=== PATIENT | male | born 1955 | race Caucasian/White ===

== ENCOUNTER 2021-08-07 10:14 | Observation (INO) | payer MEDICARE, MEDICAID ==
[2021-08-07] MEDS ORDERED: Sodium Chloride 0.9% 10 ML Syringe FLUSH PRN (10:24)
--- NOTE | 2021-08-07 10:30 | EDM.PDOC ---
ED HPI GENERAL MEDICAL PROBLEM - General Chief Complaint: General Stated Complaint: trauma Time Seen by Provider: 08/07/21 10:14 Source of Information: Reports: Patient, EMS History Limitations: Reports: No Limitations, Other (Previous head trauma and noted intellectual delay) - History of Present Illness INITIAL COMMENTS - FREE TEXT/NARRATIVE: [employer] department as a trauma code after falling down approximately 20 tiled steps. Patient is a member of the [employer] and was vacuuming at the top of the stairs. It is suspected that he stepped back not knowing his surro undings and ended up falling backwards down the stairs. Staff members were onsite and started hearing him fall and by the time they saw him he was almost at the bottom of the stairs. They noted that he did have a brief loss of consciousness less than 1 minute. He was able to answer most questions appropriately. He was noted to have bleeding from the mouth and head. Patient does have traumatic brain injury prior to today's event as well his cognition is slow according to staff. Patient currently was denying any pain or discomfort other than the left side of his neck and his head. Patient was C-spine protected prior to arrival to the emergency department. Patient currently has no concerns or complaints other than the above-stated. 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 - Related Data Allergies Allergy/AdvReac Type Severity Reaction Status Date / Time Penicillins Allergy Shortness Verified 08/07/21 11:51 of Breath shrimp flavor Allergy Shortness Uncoded 08/07/21 11:51 of Breath Home Meds: Home Meds Aspirin [Ecotrin] 81 mg PO DAILY 08/04/17 [History] Donepezil HCl 1 tab PO DAILY 08/04/17 [History] FLUoxetine HCl [Fluoxetine HCl] 40 mg PO DAILY 08/04/17 [History] busPIRone [Buspar] 20 mg PO BID 08/04/17 [History] Latanoprost/Pf [Latanoprost 0.005% Eye Drop] 7.5 ml EYELF BEDTIME 08/07/21 [History] Triamcinolone Acetonide [Triamcinolone Acetonide 0.1% Crm] 1 applic TOP BID PRN 08/07/21 [History] Past Medical History HEENT History: Reports: Cataract, Other (See Below) Other HEENT History: Extropia; myopia left eye; astigmatism left eye Cardiovascular History: Reports: None Respiratory History: Reports: Asthma Gastrointestinal History: Reports: Colon Polyp Genitourinary History: Reports: None Musculoskeletal History: Reports: Fracture Other Musculoskeletal History: TIB/FIB FX 1984 Neurological History: Reports: Brain Injury, Seizure Other Neuro History: right hemiparesis Psychiatric History: Reports: Depression, Other (See Below) Other Psychiatric History: Cognitive disorder Endocrine/Metabolic History: Reports: None Hematologic History: Reports: None Immunologic History: Reports: None Oncologic (Cancer) History: Reports: None Dermatologic History: Reports: Eczema - Past Surgical History Female Surgical History: Social & Family History - Family History : Reports: None OBGYN: Reports: None Endocrine/Metabolic: Reports: Diabetes, type II ED ROS GENERAL - Review of Systems Review Of Systems: Comprehensive ROS is negative, except as noted in HPI. Constitutional: Reports: No Symptoms HEENT: Reports: No Symptoms Respiratory: Reports: No Symptoms Cardiovascular: Reports: No Symptoms Endocrine: Reports: No Symptoms GI/Abdominal: Reports: No Symptoms : Reports: No Symptoms Musculoskeletal: Reports: No Symptoms Skin: Reports: Other (laceration to head ) Neurological: Reports: Headache Psychiatric: Reports: No Symptoms Hematologic/Lymphatic: Reports: No Symptoms Immunologic: Reports: No Symptoms ED EXAM, GENERAL - Physical Exam Exam: See Below Exam Limited By: No Limitations General Appearance: Alert, No Apparent Distress Throat/Mouth: Other (2 missing teeth, mild bleeding ) Head: Other (laceration to frontal area of skull ) Neck: Tender Lateral (left side) Respiratory/Chest: No Respiratory Distress, Lungs Clear, Normal Breath Sounds, No Accessory Muscle Use, Chest Non-Tender Cardiovascular: Normal Peripheral Pulses, Regular Rate, Rhythm, No Edema GI/Abdominal: Normal Bowel Sounds, Soft, Non-Tender, No Mass Back Exam: Normal Inspection, Full Range of Motion Extremities: Normal Inspection, Normal Range of Motion, Non-Tender, No Pedal Edema, Normal Capillary Refill Neurological: Alert. No: Oriented (does not know the date or time ) Skin Exam: Warm, Dry, Intact ED GENERAL MEDICAL PROCEDURES - Laceration/Wound Repair Anterior Midline Forehead Lac/wound length in cm: 9 Appearance: Irregular, Clean Distal NVT: Neuro & Vascular Intact, No Tendon Injury Local Anesthesia - Lidocaine (Xylocaine): 1% Plain Local Anesthetic Volume: 4cc Skin Prep: Chlorhexidine (Hibiciens) Exploration/Debridement/Repair: Wound Explored, Explored to Base, No Foreign Material Found Closed with: Tania # of Sutures: 26 Drain Placement: No Sterile Dressing Applied: Provider Tetanus Status Addressed: Yes Complications: No #2 Interpretation EKG Date: 08/07/21 Rhythm: NSR [place]: Normal Comparison: NA - No Prior EKG Course - Orders/Labs/Meds Orders: Active Orders 24 hr Category Date Time Status Admission Status [Patient Status] [ADT] Routine ADT 08/07/21 12:52 Ordered Vaccine to be Administered/Admin Charge [RC] ASDIRECTED Care 08/07/21 11:47 Active Sodium Chloride 0.9% [Saline Flush] Med 08/07/21 10:24 Ordered 10 ml FLUSH ASDIRECTED PRN Peripheral IV Insertion Adult [OM.PC] Stat Oth 08/07/21 10:22 Ordered Medication Orders Sodium Chloride (Sodium Chloride 0.9% 10 Ml Syringe) 10 ml FLUSH ASDIRECTED PRN PRN Reason: Keep Vein Open Labs: Laboratory Tests 08/07/21 08/07/21 08/07/21 Range/Units 10:21 10:21 10:21 WBC 5.8 (4.0-10.0) x10^3/uL RBC 4.58 (4.5-6.0) x10^6/uL Hgb 14.2 (14.0-18.0) g/dL Hct 42.5 (40.0-52.0) % MCV 92.8 (78.0-93.0) fL MCH 31.0 (26.0-32.0) pg MCHC 33.4 (32.0-36.0) g/dL RDW Coeff of Armando 12.7 (10.0-15.0) % Plt Count 226 (130-400) x10^3/uL Immature Gran % (Auto) 1.40 H (0.00-0.43) % Neut % (Auto) 60.4 (50.0-80.0) % Lymph % (Auto) 21.2 L (25.0-50.0) % [place] % (Auto) 10.2 (2.0-11.0) % Eos % (Auto) 5.9 H (0.0-4.0) % Baso % (Auto) 0.9 (0.2-1.2) % Neut # (Auto) 3.5 (1.8-7.7) x10^3/uL Lymph # (Auto) 1.2 (1.0-4.8) x10^3/uL [place] # (Auto) 0.6 (0.0-0.8) x10^3/uL Eos # (Auto) 0.3 (0.0-0.5) x10^3/uL Baso # (Auto) 0.1 (0.0-0.2) x10^3/uL Immature Gran # (Auto) 0.08 H (0.00-0.07) x10^3/uL PT 10.9 (9.9-12.5) SEC INR 1.0 L (2.0-3.5) Sodium 141 (136-145) mmol/L Potassium 4.0 (3.5-5.1) mmol/L Chloride 105 (98-107) mmol/L Carbon Dioxide 24 (21-32) mmol/L Anion Gap 16.0 H (5-15) mmol/L BUN 16 (7-18) mg/dL Creatinine 0.8 (0.70-1.30) mg/dL Est Cr Clr Drug Dosing TNP Estimated GFR (MDRD) > 60 Glucose 109 H (70-99) mg/dL Calcium 8.8 (8.5-10.1) mg/dL Corrected Calcium 9.4 (8.5-10.1) mg/dL Total Bilirubin 0.3 (0.2-1.0) mg/dL AST 28 (15-37) U/L ALT 39 (16-63) U/L Alkaline Phosphatase 93 (46-116) U/L Total Protein 6.6 (6.4-8.2) g/dL Albumin 3.2 L (3.4-5.0) g/dL Globulin 3.4 Albumin/Globulin Ratio 0.94 Meds: Medications Generic Name Dose Route Start Last Admin Trade Name Freq PRN Reason Stop Dose Admin Sodium Chloride 10 ml 08/07/21 10:24 Sodium Chloride 0.9% 10 Ml Syringe FLUSH ASDIRECTED PRN Keep Vein Open Discontinued Medications Generic Name Dose Route Start Last Admin Trade Name Freq PRN Reason Stop Dose Admin Diphtheria/Tetanus/Acell Pertussis 0.5 ml 08/07/21 11:47 08/07/21 12:09 Diphtheria,Pertussis(Acell),Tetanus Vaccine 0.5 Ml Syringe IM 08/07/21 11:48 0.5 ml .ONCE ONE Administration Departure - Departure Time of Disposition: 13:30 Disposition: Refer to Observation Condition: Fair Clinical Impression: Head injury due to trauma Qualifiers: Encounter type: initial encounter Qualified Code(s): S09.90XA - Unspecified injury of head, initial encounter Broken tooth due to trauma with complication Qualifiers: Encounter type: initial encounter Fracture type: closed Qualified Code(s): S02.5XXA - Fracture of tooth (traumatic), initial encounter for closed fracture - Discharge Information *PRESCRIPTION DRUG MONITORING PROGRAM REVIEWED*: Not Applicable *COPY OF PRESCRIPTION DRUG MONITORING REPORT IN PATIENT AKSHAT: Not Applicable Forms: ED Department Discharge - My Orders Last 24 Hours: My Active Orders 08/07/21 10:22 Peripheral IV Insertion Adult [OM.PC] Stat 08/07/21 10:24 Sodium Chloride 0.9% [Saline Flush] 10 ml FLUSH ASDIRECTED PRN 08/07/21 11:47 Vaccine to be Administered/Admin Charge [RC] ASDIRECTED 08/07/21 12:52 Admission Status [Patient Status] [ADT] Routine - Assessment/Plan Admission H&P: Please use this note as an admission H&P Last 24 Hours: My Active Orders 08/07/21 10:22 Peripheral IV Insertion Adult [OM.PC] Stat 08/07/21 10:24 Sodium Chloride 0.9% [Saline Flush] 10 ml FLUSH ASDIRECTED PRN 08/07/21 11:47 Vaccine to be Administered/Admin Charge [RC] ASDIRECTED 08/07/21 12:52 Admission Status [Patient Status] [ADT] Routine Assessment:: 1. trauma 2. fall of 20 steps 3. head trauma 4. facial trauma 5. Missing teeth and loose front bottom teeth Plan: 1. Trauma code called 2. C-collar in place prior to arrival 3. IV initiated. Fluids at a controlled rate 4. CT scan of head ordered to due mechanism patients uncertainty of baseline understanding and previous head trauma 5. X-ray completed of neck, chest, and pelvis 6. Labs completed 7. EKG completed. No acute findings or ST elevation noted. 8. Medication offered to the patient patient declined 9. [place] applied to head and dressing applied to the head 10. Teeth were not able to be replaced and placed in a belongings cup at this time. 11. Patient will need to follow up with face and jaw for further evaluation of the front lower jaw and loose teeth noted 12. Fentanyl IV ordered to help with the pain 13. Consultation complete with [facility]. If no injuries are found they recommend CT scan neck and chest and admit and complete neuro checks if capable. 14. Consultation completed with Dr. Zhang who agrees with the above plan of care at this time. 15. All questions and concerns addressed with the patient prior to admit 16. Covid testing will need to be completed 17. Admission orders - neuro checks every 2 hours x 4 then every 6 hours x 2 then every shift - PT/OT consult and up ambulating - Dressing changes 2 times a day for head with dry dressing and gauze and PRN if saturated - Activity and diet as tolerated with assistance - Code level 1 - Continue at home medications - PRN pain medications have been ordered - hourly mouth cleaning during the day time - NS 75ml/hr - Dr. Zhang consulted and will assume care of patient in the am if something changes communication with occur with nursing staff - Nursing staff to contact [facility] and schedule an outpatient appointment due to facial trauma
[2021-08-07 10:49] LABS: CHLORIDE,CL 105 mmol/L (98-107); SODIUM,NA 141 mmol/L (136-145)
--- NOTE | 2021-08-07 11:13 | CT ---
[id number] CT/CT Head WO IV EXAM: CT Head WO IV CLINICAL DATA: TRAUMA COMPARISON: No previous similar exam is available for comparison. FINDINGS: There is no hemorrhage or hydrocephalus. There are no extra-axial fluid collections. An old lacunar infarct is seen in the rodriguez radiata on the left There is a right frontal hero hole A 2.8 cm left temporal lobe arachnoid cyst is seen There is soft tissue injury in the left frontal region. Correlation with the history would be helpful IMPRESSION: NO PLAIN CT EVIDENCE OF ACUTE INTRACRANIAL PROCESS. Justin Cardoso MD 08/07/21 [id number] Thank you for allowing us to participate in the care of your patient.
--- NOTE | 2021-08-07 11:23 | CR ---
[id number] RAD/RAD Chest PA or AP 1V EXAM: RAD Chest PA or AP 1V INDICATION: FALL WITH LOC, HEAD LAC COMPARISON: None. DISCUSSION/IMPRESSION: Cardiomegaly and central vascular congestion. Lungs are clear. No pleural effusion or pneumothorax. Kota Butler MD 08/07/21 1121 Thank you for allowing us to participate in the care of your patient.
--- NOTE | 2021-08-07 11:27 | CR ---
[id number] RAD/RAD Cervical Spine 1V Exam: RAD Cervical Spine 1V Indication:FALL WITH LOC, HEAD LAC Comparison: No prior imaging for comparison. Discussion/Impression: No acute fracture or compression deformity. Spondylosis. Findings include facet joint arthropathy and degenerative disc disease. Degenerative disc disease is most prominent at C6-7 where there is severe intervertebral disc height loss and bulky anterior osteophytes. Facet joint arthropathy results in grade 1 anterolisthesis at C3-4 and C4-5. Kota Butler MD 08/07/21 1126 Thank you for allowing us to participate in the care of your patient.
--- NOTE | 2021-08-07 11:30 | CR ---
[id number] RAD/RAD Pelvis 1-2V Exam: RAD Pelvis 1-2V Clinical Data: TRAUMA COMPARISON: NO PREVIOUS SIMILAR EXAM IS AVAILABLE FINDINGS: Old right pubic rami fractures are seen No new fracture or dislocation is identified IMPRESSION: NO NEW FRACTURE OR DISLOCATION Justin Cardoso MD 08/07/21 [id number] Thank you for allowing us to participate in the care of your patient.
--- NOTE | 2021-08-07 11:30 | CR ---
[id number] RAD/RAD Abdomen Flat Plate 1V EXAM: RAD Abdomen Flat Plate 1V INDICATION: FALL WITH LOC, HEAD LAC COMPARISON: None. Discussion/Impression: Unobstructed bowel gas pattern. Moderate stool volume in the colon and rectum. No acute findings identified. Clips project over the upper abdomen. Kota Butler MD 08/07/21 1128 Thank you for allowing us to participate in the care of your patient.
--- NOTE | 2021-08-07 11:35 | CR ---
[id number] RAD/RAD Shoulder Left 1V EXAM: RAD Shoulder Left 1V CLINICAL DATA: TRAUMA COMPARISON: No previous similar exam is available. FINDINGS: A single projection only was obtained. There appears to be soft tissue injury in the left axillary region. There is question of a fracture involving the proximal diaphysis of the left humerus. Further studies needed There also may be old injury of the left humerus There is cortical thickening. IMPRESSION: SOFT TISSUE INJURY QUESTION OF ACUTE FRACTURE VERSUS SOFT TISSUE PROJECTING AGAINST BONE MIMICKING FRACTURE CONSIDER FURTHER PROJECTIONS OR CAT SCAN Justin Cardoso MD 08/07/21 3071 Thank you for allowing us to participate in the care of your patient.
[2021-08-07] MEDS ORDERED: Diphtheria,Pertussis(Acell),Tetanus Vaccine 0.5 ML Syringe IM ONE (11:47)
--- NOTE | 2021-08-07 12:28 | CT ---
[id number] CT/CT Cervical Spine WO IV Exam: CT Cervical Spine WO IV Clinical Data: TRAUMA COMPARISON: NO PREVIOUS SIMILAR EXAM IS AVAILABLE FINDINGS: There is no fracture or subluxation There are multilevel degenerative changes of the cervical spine There are degenerative changes of the right temporomandibular joint also The prevertebral soft tissues are unremarkable IMPRESSION: NO FRACTURE OR SUBLUXATION Justin Cardoso MD 08/07/21 [id number] Thank you for allowing us to participate in the care of your patient.
--- NOTE | 2021-08-07 12:40 | CT ---
[id number] CT/CT Chest WO IV EXAM: CHEST CT WITHOUT CONTRAST INDICATION: FALL. COMPARISON: None. DISCUSSION: Chronic bilateral rib fractures. No acute fractures are identified. Mild scattered thoracic spondylosis. Mild tree-in-bud opacities in the right upper lobe suggestive of bronchiolitis. There is mild diffuse bronchitis. Mucus is noted in the right mainstem bronchus. No acute infiltrates. No pleural or pericardial effusion. Normal heart size. No pneumothorax. Surgical clips at the gastroesophageal junction. The imaged upper abdomen is otherwise unremarkable. IMPRESSION: 1. No acute findings. Riaz Rivas MD 08/07/21 3431 Thank you for allowing us to participate in the care of your patient.
[2021-08-07] MEDS ORDERED: fentaNYL 50 MCG/ML SDV IVPUSH ONE (13:05)
[2021-08-07] MEDS ORDERED: Ibuprofen 200 MG Tab PO PRN (13:40)
[2021-08-07] MEDS ORDERED: HYDROmorphone 0.5 MG/0.5 ML Syringe IVPUSH PRN (13:40)
--- NOTE | 2021-08-07 13:52 | PCM.SN.2 ---
- Free Text/Narrative Note: -xray of left shoulder returned with questionable humerus fracture complete CT- scan. CT scan ordered for the am. Patient is placed in a shoulder immoblizer for stability until cleared. -Covid-19 testing completed for admit- negative findings
[2021-08-07] MEDS: Ondansetron 4 MG/2 ML SDV IV PRN (16:16)
[2021-08-07] MEDS: Sodium Chloride 0.9% 1,000 ML IV SCH (16:22)
[2021-08-07] MEDS: busPIRone 5 MG Tab PO SCH (20:25)
[2021-08-07] MEDS: Latanoprost 0.005% Ophth Soln 2.5 ML Bottle EYELF SCH (20:26)
[2021-08-08] MEDS: Acetaminophen 325 MG Tab PO PRN ×2 (02:15→19:26)
[2021-08-08] MEDS: Sodium Chloride 0.9% 1,000 ML IV SCH (05:22)
[2021-08-08 07:24] LABS: CHLORIDE,CL 104 mmol/L (98-107); SODIUM,NA 139 mmol/L (136-145)
[2021-08-08] MEDS: busPIRone 5 MG Tab PO SCH ×2 (11:34→19:23)
[2021-08-08] MEDS: Aspirin 81 MG Tab.EC PO SCH (11:34)
[2021-08-08] MEDS: Donepezil 10 MG Tab PO SCH (11:35)
[2021-08-08] MEDS: Ondansetron 4 MG/2 ML SDV IV PRN (11:35)
[2021-08-08] MEDS: FLUoxetine 20 MG Cap PO SCH (11:35)
--- NOTE | 2021-08-08 13:18 | CT ---
[id number] CT/CT Shoulder Left WO IV Exam: CT Shoulder Left WO IV Indication:FALL, RAD REQUEST FOR RULE OUT HUMERUS FRACTURE. Comparison: No prior imaging for comparison. Discussion/Impression: No acute fracture of the proximal humerus. Findings radiograph are consistent with summation artifact from skin fold overlapping the proximal humeral diaphysis. Acromioclavicular and glenohumeral osteoarthritis. Glenohumeral and acromioclavicular joint space narrowing. Degenerative osseous spurring along the bursal surface of the acromion. Degenerative change of the humeral head at the rotator cuff footprint, including subcortical cyst formation at the supraspinatus footprint. 7 x 4 x 3 mm osteochondral body projects over the supraspinatus footprint as well. Findings could represent calcific tendinopathy or chronically avulsed fragment from the humeral head footprint. Kota Butler MD 08/08/21 [id number] Thank you for allowing us to participate in the care of your patient.
--- NOTE | 2021-08-08 14:16 | PCM.DCSUM1 ---
Discharge Summary - Hospital Course Brief History: Mr. Moreira is a 65 yo male who was admitted for monitoring following a trauma yesterday where he fell down 20 concrete stairs. - Discharge Data Discharge Date: 08/08/21 Discharge Disposition: Home, Self-Care 01 Condition: Good - Referral to Home Health Primary Care Physician: Judy Zhang MD - Discharge Diagnosis/Problem(s) (1) Head injury due to trauma SNOMED Code(s): 58717222 ICD Code: S09.90XA - UNSPECIFIED INJURY OF HEAD, INITIAL ENCOUNTER Status: Acute Current Visit: Yes Qualifiers: Encounter type: initial encounter Qualified Code(s): S09.90XA - Unspecified injury of head, initial encounter (2) Broken tooth due to trauma with complication SNOMED Code(s): 88641931 ICD Code: S02.5XXA - FRACTURE OF TOOTH (TRAUMATIC), INIT FOR CLOS FX Status: Acute Current Visit: Yes Qualifiers: Encounter type: initial encounter Fracture type: closed Qualified Code(s): S02.5XXA - Fracture of tooth (traumatic), initial encounter for closed fracture (3) Depression SNOMED Code(s): 04955287 ICD Code: F32.A - DEPRESSION, UNSPECIFIED Status: Chronic Current Visit: Yes Qualifiers: Depression Type: unspecified Qualified Code(s): F32.A - Depression, uns pecified (4) Major neurocognitive disorder SNOMED Code(s): 640612273 ICD Code: F03.90 - UNSPECIFIED DEMENTIA WITHOUT BEHAVIORAL DISTURBANCE Status: Chronic Current Visit: Yes - Patient Summary/Data Operative Procedure(s) Performed: none Complications: none Consults: Consultations 08/07/21 13:40 OT Evaluation and Treatment [CONS] Routine PT Evaluation and Treatment [CONS] Routine Labs Pending at D/C: none Recommended Follow-up Testing/Procedures: none Planned Operative Procedure(s) after DC: none Hospital Course: He had appropriate imaging in the ER that all came back unremarkable aside from a possible left humerus fracture on his CT chest. He had a CT of his humerus today that was negative. His hemoglobin did drop from yesterday to today but this was felt to be hemodilution. Recheck this afternoon proved stability throughout the day today. He needs follow-up with oral surgery for his loose teeth. Tertiary survey was negative. He walked with PT without any issues. His hospitalization was otherwise uncomplicated. He will be discharged back to the [facility] and will follow-up in 1 week. - Patient Instructions Diet: Usual Diet as Tolerated Activity: As Tolerated Notify Provider of: Fever, Increased Pain, Swelling and Redness, Drainage, Nausea and/or Vomiting - Discharge Plan *PRESCRIPTION DRUG MONITORING PROGRAM REVIEWED*: Not Applicable *COPY OF PRESCRIPTION DRUG MONITORING REPORT IN PATIENT AKSHAT: Not Applicable Home Medications: Home Meds Aspirin [Ecotrin EC] 81 mg PO DAILY 08/04/17 [History] Donepezil HCl 1 tab PO DAILY 08/04/17 [History] FLUoxetine HCl [Fluoxetine HCl] 40 mg PO DAILY 08/04/17 [History] busPIRone [Buspar] 20 mg PO BID 08/04/17 [History] Latanoprost/Pf [Latanoprost 0.005% Eye Drop] 7.5 ml EYELF BEDTIME 08/07/21 [History] Triamcinolone Acetonide [Triamcinolone Acetonide 0.1% Crm] 1 applic TOP BID PRN 08/07/21 [History] Forms: ED Department Discharge Referrals: Judy Zhang MD [Primary Care Provider] - - Discharge Summary/Plan Comment DC Time >30 min.: No Total # of Minutes for Discharge Time: 20 - General Info Date of Service: 08/08/21 Subjective Update: Patient states he is feeling well this morning. No headache or any musculoskeletal pain. Eating well. No nausea or vomiting. He feels he could go home today. - Review of Systems General: Reports: No Symptoms HEENT: Reports: No Symptoms Pulmonary: Reports: No Symptoms Cardiovascular: Reports: No Symptoms Gastrointestinal: Reports: No Symptoms Genitourinary: Reports: No Symptoms Musculoskeletal: Reports: No Symptoms Skin: Reports: No Symptoms Neurological: Reports: No Symptoms - Patient Data Vitals - Most Recent: Last Vital Signs Temp 36.6 C 08/08/21 10:00 Pulse 62 08/08/21 10:00 Resp 16 08/08/21 06:45 BP 111/51 L 08/08/21 10:00 Pulse Ox 95 08/08/21 10:00 Weight - Most Recent: 61.235 kg I&O - Last 24 hours: Intake & Output 08/07/21 08/08/21 08/08/21 22:59 06:59 14:59 Intake Total 60 200 540 Output Total 400 450 Balance -340 -250 540 Lab Results - Last 24 hrs: Laboratory Results - last 24 hr 08/08/21 08/08/21 08/08/21 Range/Units 06:39 06:39 13:29 WBC 7.7 7.6 (4.0-10.0) x10^3/uL RBC 3.89 L 3.94 L (4.5-6.0) x10^6/uL Hgb 12.1 L D 12.3 L (14.0-18.0) g/dL Hct 35.7 L 36.5 L (40.0-52.0) % MCV 91.8 92.6 (78.0-93.0) fL MCH 31.1 31.2 (26.0-32.0) pg MCHC 33.9 33.7 (32.0-36.0) g/dL RDW Coeff of Armando 12.6 12.8 (10.0-15.0) % Plt Count 210 199 (130-400) x10^3/uL Immature Gran % (Auto) 0.30 0.10 (0.00-0.43) % Neut % (Auto) 75.3 80.1 H (50.0-80.0) % Lymph % (Auto) 9.4 L 6.9 L (25.0-50.0) % [place] % (Auto) 13.2 H 11.4 H (2.0-11.0) % Eos % (Auto) 1.4 1.1 (0.0-4.0) % Baso % (Auto) 0.4 0.4 (0.2-1.2) % Neut # (Auto) 5.8 6.1 (1.8-7.7) x10^3/uL Lymph # (Auto) 0.7 L 0.5 L (1.0-4.8) x10^3/uL [place] # (Auto) 1.0 H 0.9 H (0.0-0.8) x10^3/uL Eos # (Auto) 0.1 0.1 (0.0-0.5) x10^3/uL Baso # (Auto) 0.0 0.0 (0.0-0.2) x10^3/uL Immature Gran # (Auto) 0.02 0.01 (0.00-0.07) x10^3/uL Sodium 139 (136-145) mmol/L Potassium 4.0 (3.5-5.1) mmol/L Chloride 104 (98-107) mmol/L Carbon Dioxide 28 (21-32) mmol/L Anion Gap 11.0 (5-15) mmol/L BUN 12 (7-18) mg/dL Creatinine 0.8 (0.70-1.30) mg/dL Est Cr Clr Drug Dosing 80.80 mL/min Estimated GFR (MDRD) > 60 Glucose 108 H (70-99) mg/dL Calcium 8.2 L (8.5-10.1) mg/dL Med Orders - Current: Current Medications Acetaminophen (Acetaminophen 325 Mg Tab) 650 mg PO Q4H PRN PRN Reason: Pain (Mild 1-3)/fever Last Admin: 08/08/21 02:15 Dose: 650 mg Documented by: Aspirin (Aspirin 81 Mg Tab.Ec) 81 mg PO DAILY [facility] Last Admin: 08/08/21 11:34 Dose: 81 mg Documented by: Buspirone HCl (Buspirone 5 Mg Tab) 20 mg PO BID [facility] Last Admin: 08/08/21 11:34 Dose: 20 mg Documented by: Donepezil HCl (Donepezil 10 Mg Tab) 10 mg PO DAILY [facility] Last Admin: 08/08/21 11:35 Dose: 10 mg Documented by: Fluoxetine HCl (Fluoxetine 20 Mg Cap) 40 mg PO DAILY [facility] Last Admin: 08/08/21 11:35 Dose: 40 mg Documented by: Hydromorphone HCl (Hydromorphone 0.5 Mg/0.5 Ml Syringe) 0.25 mg IVPUSH Q2H PRN PRN Reason: Pain (severe 7-10) Last Admin: 08/07/21 16:14 Dose: 0.25 mg Documented by: Ibuprofen (Ibuprofen 200 Mg Tab) 600 mg PO Q6H PRN PRN Reason: Pain (mild 1-3) Latanoprost (Latanoprost 0.005% Ophth Soln 2.5 Ml Bottle) 0 ml EYELF BEDTIME [facility] Last Admin: 08/07/21 20:26 Dose: 1 drop Documented by: Ondansetron HCl (Ondansetron 4 Mg/2 Ml Sdv) 4 mg IV Q4H PRN PRN Reason: Nausea/Vomiting Last Admin: 08/08/21 11:35 Dose: 4 mg Documented by: Sodium Chloride (Sodium Chloride 0.9% 10 Ml Syringe) 10 ml FLUSH ASDIRECTED PRN PRN Reason: Keep Vein Open Last Admin: 08/07/21 16:17 Dose: 10 ml Documented by: Discontinued Medications Diphtheria/Tetanus/Acell Pertussis (Diphtheria,Pertussis(Acell),Tetanus Vaccine 0.5 Ml Syringe) 0.5 ml IM .ONCE ONE Stop: 08/07/21 11:48 Last Admin: 08/07/21 12:09 Dose: 0.5 ml Documented by: Fentanyl (Fentanyl 50 Mcg/Ml Sdv) 25 mcg IVPUSH ONETIME ONE Stop: 08/07/21 13:06 Last Admin: 08/07/21 13:13 Dose: 25 mcg Documented by: Sodium Chloride (Normal Saline) 1,000 mls @ 75 mls/hr IV ASDIRECTED [facility] Last Admin: 08/08/21 05:22 Dose: 75 mls/hr Documented by: - Exam General: Reports: Alert, Cooperative, No Acute Distress HEENT: Reports: Mucous Membr. Moist/[place] Neck: Reports: Supple, Trachea Midline, No Thyromegaly. Denies: Lymphadenopathy Lungs: Reports: Clear to Auscultation, Normal Respiratory Effort Cardiovascular: Reports: Regular Rate, Regular Rhythm, No Murmurs GI/Abdominal Exam: Normal Bowel Sounds, Soft, Non-Tender, No Organomegaly, No Distention, No Mass Back Exam: Reports: Normal Inspection. Denies: Paraspinal Tenderness, Vertebral Tenderness Extremities: Normal Inspection, Normal Range of Motion, Non-Tender, No Pedal Edema, Normal Capillary Refill Skin: Reports: Warm, Dry, Intact Neurological: Reports: No New Focal Deficit
--- NOTE | 2021-08-08 14:55 | PCM.PN ---
- General Info Date of Service: 08/08/21 Subjective Update: 65 yo male hospital day #2 admitted following a fall down 20 stairs yesterday. He states he is feeling well. He is not a reliable historian due to h/o TBI. But he denies any pain whatsoever. He has walked with PT and that went well. - Review of Systems General: Reports: No Symptoms HEENT: Reports: No Symptoms Pulmonary: Reports: No Symptoms Cardiovascular: Reports: No Symptoms Gastrointestinal: Reports: No Symptoms Genitourinary: Reports: No Symptoms Musculoskeletal: Reports: No Symptoms Skin: Reports: No Symptoms Neurological: Reports: No Symptoms - Patient Data Vitals - Most Recent: Last Vital Signs Temp 37.1 C 08/08/21 14:00 Pulse 53 L 08/08/21 14:00 Resp 16 08/08/21 06:45 BP 103/47 L 08/08/21 14:00 Pulse Ox 95 08/08/21 14:00 Weight - Most Recent: 61.235 kg I&O - Last 24 Hours: Intake & Output 08/07/21 08/08/21 08/08/21 22:59 06:59 14:59 Intake Total 60 200 540 Output Total 400 450 Balance -340 -250 540 Lab Results Last 24 Hours: Laboratory Results - last 24 hr 08/08/21 08/08/21 08/08/21 Range/Units 06:39 06:39 13:29 WBC 7.7 7.6 (4.0-10.0) x10^3/uL RBC 3.89 L 3.94 L (4.5-6.0) x10^6/uL Hgb 12.1 L D 12.3 L (14.0-18.0) g/dL Hct 35.7 L 36.5 L (40.0-52.0) % MCV 91.8 92.6 (78.0-93.0) fL MCH 31.1 31.2 (26.0-32.0) pg MCHC 33.9 33.7 (32.0-36.0) g/dL RDW Coeff of Armando 12.6 12.8 (10.0-15.0) % Plt Count 210 199 (130-400) x10^3/uL Immature Gran % (Auto) 0.30 0.10 (0.00-0.43) % Neut % (Auto) 75.3 80.1 H (50.0-80.0) % Lymph % (Auto) 9.4 L 6.9 L (25.0-50.0) % [place] % (Auto) 13.2 H 11.4 H (2.0-11.0) % Eos % (Auto) 1.4 1.1 (0.0-4.0) % Baso % (Auto) 0.4 0.4 (0.2-1.2) % Neut # (Auto) 5.8 6.1 (1.8-7.7) x10^3/uL Lymph # (Auto) 0.7 L 0.5 L (1.0-4.8) x10^3/uL [place] # (Auto) 1.0 H 0.9 H (0.0-0.8) x10^3/uL Eos # (Auto) 0.1 0.1 (0.0-0.5) x10^3/uL Baso # (Auto) 0.0 0.0 (0.0-0.2) x10^3/uL Immature Gran # (Auto) 0.02 0.01 (0.00-0.07) x10^3/uL Sodium 139 (136-145) mmol/L Potassium 4.0 (3.5-5.1) mmol/L Chloride 104 (98-107) mmol/L Carbon Dioxide 28 (21-32) mmol/L Anion Gap 11.0 (5-15) mmol/L BUN 12 (7-18) mg/dL Creatinine 0.8 (0.70-1.30) mg/dL Est Cr Clr Drug Dosing 80.80 mL/min Estimated GFR (MDRD) > 60 Glucose 108 H (70-99) mg/dL Calcium 8.2 L (8.5-10.1) mg/dL Med Orders - Current: Current Medications Acetaminophen (Acetaminophen 325 Mg Tab) 650 mg PO Q4H PRN PRN Reason: Pain (Mild 1-3)/fever Last Admin: 08/08/21 02:15 Dose: 650 mg Documented by: Aspirin (Aspirin 81 Mg Tab.Ec) 81 mg PO DAILY [facility] Last Admin: 08/08/21 11:34 Dose: 81 mg Documented by: Buspirone HCl (Buspirone 5 Mg Tab) 20 mg PO BID [facility] Last Admin: 08/08/21 11:34 Dose: 20 mg Documented by: Donepezil HCl (Donepezil 10 Mg Tab) 10 mg PO DAILY [facility] Last Admin: 08/08/21 11:35 Dose: 10 mg Documented by: Fluoxetine HCl (Fluoxetine 20 Mg Cap) 40 mg PO DAILY [facility] Last Admin: 08/08/21 11:35 Dose: 40 mg Documented by: Hydromorphone HCl (Hydromorphone 0.5 Mg/0.5 Ml Syringe) 0.25 mg IVPUSH Q2H PRN PRN Reason: Pain (severe 7-10) Last Admin: 08/07/21 16:14 Dose: 0.25 mg Documented by: Ibuprofen (Ibuprofen 200 Mg Tab) 600 mg PO Q6H PRN PRN Reason: Pain (mild 1-3) Latanoprost (Latanoprost 0.005% Ophth Soln 2.5 Ml Bottle) 0 ml EYELF BEDTIME [facility] Last Admin: 08/07/21 20:26 Dose: 1 drop Documented by: Ondansetron HCl (Ondansetron 4 Mg/2 Ml Sdv) 4 mg IV Q4H PRN PRN Reason: Nausea/Vomiting Last Admin: 08/08/21 11:35 Dose: 4 mg Documented by: Sodium Chloride (Sodium Chloride 0.9% 10 Ml Syringe) 10 ml FLUSH ASDIRECTED PRN PRN Reason: Keep Vein Open Last Admin: 08/07/21 16:17 Dose: 10 ml Documented by: Discontinued Medications Diphtheria/Tetanus/Acell Pertussis (Diphtheria,Pertussis(Acell),Tetanus Vaccine 0.5 Ml Syringe) 0.5 ml IM .ONCE ONE Stop: 08/07/21 11:48 Last Admin: 08/07/21 12:09 Dose: 0.5 ml Documented by: Fentanyl (Fentanyl 50 Mcg/Ml Sdv) 25 mcg IVPUSH ONETIME ONE Stop: 08/07/21 13:06 Last Admin: 08/07/21 13:13 Dose: 25 mcg Documented by: Sodium Chloride (Normal Saline) 1,000 mls @ 75 mls/hr IV ASDIRECTED [facility] Last Admin: 08/08/21 05:22 Dose: 75 mls/hr Documented by: - Exam General: Alert, Cooperative, No Acute Distress HEENT: Mucous Membr. Moist/[place] Neck: Supple, Trachea Midline, No Thyromegaly. No: Lymphadenopathy Lungs: Clear to Auscultation, Normal Respiratory Effort Cardiovascular: Regular Rate, Regular Rhythm, No Murmurs GI/Abdominal Exam: Normal Bowel Sounds, Soft, Non-Tender, No Organomegaly, No Distention, No Mass Extremities: Normal Inspection, Normal Range of Motion (at baseline), Non- Tender, No Pedal Edema, Normal Capillary Refill Peripheral Pulses: 2+: Radial (L), Radial (R) Skin: Warm, Dry, Intact Neurological: No New Focal Deficit - Patient Data Lab Results Last 24 hrs: Laboratory Results - last 24 hr 08/08/21 08/08/21 08/08/21 Range/Units 06:39 06:39 13:29 WBC 7.7 7.6 (4.0-10.0) x10^3/uL RBC 3.89 L 3.94 L (4.5-6.0) x10^6/uL Hgb 12.1 L D 12.3 L (14.0-18.0) g/dL Hct 35.7 L 36.5 L (40.0-52.0) % MCV 91.8 92.6 (78.0-93.0) fL MCH 31.1 31.2 (26.0-32.0) pg MCHC 33.9 33.7 (32.0-36.0) g/dL RDW Coeff of Armando 12.6 12.8 (10.0-15.0) % Plt Count 210 199 (130-400) x10^3/uL Immature Gran % (Auto) 0.30 0.10 (0.00-0.43) % Neut % (Auto) 75.3 80.1 H (50.0-80.0) % Lymph % (Auto) 9.4 L 6.9 L (25.0-50.0) % [place] % (Auto) 13.2 H 11.4 H (2.0-11.0) % Eos % (Auto) 1.4 1.1 (0.0-4.0) % Baso % (Auto) 0.4 0.4 (0.2-1.2) % Neut # (Auto) 5.8 6.1 (1.8-7.7) x10^3/uL Lymph # (Auto) 0.7 L 0.5 L (1.0-4.8) x10^3/uL [place] # (Auto) 1.0 H 0.9 H (0.0-0.8) x10^3/uL Eos # (Auto) 0.1 0.1 (0.0-0.5) x10^3/uL Baso # (Auto) 0.0 0.0 (0.0-0.2) x10^3/uL Immature Gran # (Auto) 0.02 0.01 (0.00-0.07) x10^3/uL Sodium 139 (136-145) mmol/L Potassium 4.0 (3.5-5.1) mmol/L Chloride 104 (98-107) mmol/L Carbon Dioxide 28 (21-32) mmol/L Anion Gap 11.0 (5-15) mmol/L BUN 12 (7-18) mg/dL Creatinine 0.8 (0.70-1.30) mg/dL Est Cr Clr Drug Dosing 80.80 mL/min Estimated GFR (MDRD) > 60 Glucose 108 H (70-99) mg/dL Calcium 8.2 L (8.5-10.1) mg/dL Result Diagrams: 08/08/21 13:29 08/08/21 06:39 Sepsis Event Note - Evaluation Sepsis Screening Result: No Definite Risk - Focused Exam Vital Signs: Vital Signs Temp Pulse Resp BP Pulse Ox 08/08/21 14:00 37.1 C 53 L 103/47 L 95 08/08/21 10:00 36.6 C 62 111/51 L 95 08/08/21 06:45 59 L 16 100/49 L 96 - Problem List & Annotations (1) Head injury due to trauma SNOMED Code(s): 35874869 Code(s): S09.90XA - UNSPECIFIED INJURY OF HEAD, INITIAL ENCOUNTER Status: Acute Current Visit: Yes Qualifiers: Encounter type: initial encounter Qualified Code(s): S09.90XA - Unspecified injury of head, initial encounter (2) Broken tooth due to trauma with complication SNOMED Code(s): 51809931 Code(s): S02.5XXA - FRACTURE OF TOOTH (TRAUMATIC), INIT FOR CLOS FX Status: Acute Current Visit: Yes Qualifiers: Encounter type: initial encounter Fracture type: closed Qualified Code(s): S02.5XXA - Fracture of tooth (traumatic), initial encounter for closed fracture (3) Depression SNOMED Code(s): 65112830 Code(s): F32.A - DEPRESSION, UNSPECIFIED Status: Chronic Current Visit: Yes Qualifiers: Depression Type: unspecified Qualified Code(s): F32.A - Depression, unspecified (4) Major neurocognitive disorder SNOMED Code(s): 357863177 Code(s): F03.90 - UNSPECIFIED DEMENTIA WITHOUT BEHAVIORAL DISTURBANCE Status: Chronic Current Visit: Yes - Problem List Review Problem List Initiated/Reviewed/Updated: Yes - My Orders Last 24 Hours: My Active Orders 08/08/21 14:19 Ready for Discharge [RC] PER UNIT ROUTINE - Assessment Assessment:: 65 yo male hospital day #2 admitted following a fall down 20 steps. Is doing well today. CT negative for any humerus fracture. - Plan Plan:: See problem list above. He is doing very well. However, [facility] does not feel comfortable taking him back today. They want to come up and do an assessment as well as get his room moved. They are also looking at getting other supplies of a bed alarm and a gait belt. This is a reasonable request given concern is for his safety returning home without these measures. Continue current management. Will plan for d/c tomorrow. No role for VTE prophylaxis. Code status is full.
[2021-08-08] MEDS: Latanoprost 0.005% Ophth Soln 2.5 ML Bottle EYELF SCH (19:26)
[2021-08-09] MEDS: busPIRone 5 MG Tab PO SCH (09:05)
[2021-08-09] MEDS: FLUoxetine 20 MG Cap PO SCH (09:06)
[2021-08-09] MEDS: Aspirin 81 MG Tab.EC PO SCH (09:07)
[2021-08-09] MEDS: Donepezil 10 MG Tab PO SCH (09:07)
== END 2021-08-09 13:30 | disposition home or self-care (01) ==
LOC: VM.ED 10:14 → INTOOBSV 12:52 → VM.MS 12:52
PROVIDERS: ADMIT Nurse Practitioner; ATTEND Family Medicine
DX: S09.90XA Unspecified injury of head, initial encounter (principal); S02.5XXA Fracture of tooth (traumatic), initial encounter for closed fracture; F32.A Depression, unspecified; F03.90 Unspecified dementia, unspecified severity, without behavioral disturbance, psychotic disturbance, mood disturbance, and anxiety; Z79.82 Long term (current) use of aspirin; Z88.0 Allergy status to penicillin; Z91.013 Allergy to seafood; Z79.899 Other long term (current) drug therapy; Z20.822 Contact with and (suspected) exposure to COVID-19
CPT/HCPCS: 36415; 70450; 71045; 71250; 72020; 72125; 72170; 73020; 73200; 74018; 80048; 80053; 85025; 85610; 90471; 90715; 93005; 96374; 96375; 96376; 97162; 97165; 99285; A9270; G0378; J1170; J2405; J3010; J7030; U0002

== ENCOUNTER 2024-01-12 19:00 | Emergency (ER) | payer MEDICAID, MEDICARE ==
[2024-01-12] MEDS: Lidocaine 1% 30 ML SDV INJECT ONE (19:31)
== END 2024-01-12 20:35 | disposition home or self-care (01) ==
LOC: VM.ED 19:00
DX: S01.01XA Laceration without foreign body of scalp, initial encounter (principal); Z88.0 Allergy status to penicillin; Z91.013 Allergy to seafood; Z79.82 Long term (current) use of aspirin; Z79.899 Other long term (current) drug therapy; Z87.891 Personal history of nicotine dependence; W07.XXXA Fall from chair, initial encounter; Z86.69 Personal history of other diseases of the nervous system and sense organs
CPT/HCPCS: 12002; 70450; 99283; 99284; J3490